=== PATIENT | male | born 1960 | race Caucasian/White ===

== ENCOUNTER → 2017-05-24 | Outpatient (CLI) | payer BC ==
--- NOTE | 2017-05-27 08:11 | RAD ---
4 views left knee. Indication: LEFT KNEE PAIN. M25.562 Comparison: None. IMPRESSION: Mild tricompartmental joint space narrowing without subchondral sclerosis or cystic change. No acute fracture or malalignment. Minimal ossification noted within Hoffa's fat pad anterior superiorly. Tiny knee effusion. Electronically signed by: Manuel Hooks MD 05/27/2017 8:10 AM CDT
--- NOTE | 2017-05-27 08:12 | RAD ---
EXAM DESCRIPTION: Pelvis CLINICAL HISTORY: LEFT HIP PAIN. M25.552 COMPARISON: None FINDINGS: 2 frontal views of the pelvis. Crowding is intact. SI joints and sacral struts are intact. No advanced osteoarthritis of the bilateral hips. No acute fracture. Bone mineralization within normal limits. Advanced facet arthritis of the lumbar spine greater on the left side cannot contribute to referred posterior left hip pain. Surgical changes of the rectal colon. IMPRESSION: Normal radiographs of the hip. Lumbar facet arthritis can refer posterior hip pain. Electronically signed by: Bassem Garay MD 05/27/2017 8:11 AM CDT
== END | disposition home or self-care (01) ==
LOC: RAD 07:35
PROVIDERS: ATTEND Orthopaedic Surgery
DX: M25.562 Pain in left knee (principal); M25.552 Pain in left hip

== ENCOUNTER → 2017-07-10 | Outpatient (CLI) | payer BC | END | disposition home or self-care (01) | LOC: GMAL 10:56 | PROVIDERS: ATTEND Family Medicine | DX: Z00.01 Encounter for general adult medical examination with abnormal findings (principal) ==

== ENCOUNTER → 2017-08-20 | Outpatient (CLI) | payer BC | END | disposition home or self-care (01) | LOC: SL 20:10 | PROVIDERS: ATTEND Family Medicine | DX: F51.09 Other insomnia not due to a substance or known physiological condition (principal); G47.61 Periodic limb movement disorder; G47.10 Hypersomnia, unspecified ==

== ENCOUNTER 2017-08-30 05:51 | Day surgery (SDC) | payer BC, OTHER ==
--- NOTE | 2017-08-19 09:21 | HP ---
CHIEF COMPLAINT: Left knee pain. HISTORY OF PRESENT ILLNESS: Mr. Quinn is a 57-year-old male with a history of pain in the left knee that has been going on for several months. He did have previous trauma to the knee and at that time was only having some pain along the medial aspect. It seems as thought it was more of a ligamentous strain. Unfortunately, he subsequently felt clicking in the knee. He also developed difficulty with extension. He has pain with valgus stress to the knee as well. He has had no new trauma since his last visit with us, but has gotten progressively worse. To that end and given the development of symptoms of a mechanical nature, he and I talked about options, which would include an MRI versus moving forward with knee arthroscopy. Just given his history of worsening symptoms and mechanical symptoms, we are going to move forward with knee arthroscopy. After discussing the risks, benefits and alternatives to that , the patient has given informed consent. PAST SURGICAL HISTORY: None. MEDICATIONS: 1. Fluoxetine. ALLERGIES: NO KNOWN DRUG ALLERGIES. CODE STATUS: Full code. IMMUNIZATIONS: Up to date. SOCIAL HISTORY: The patient does not smoke or use any illicit drugs. He does drink on occasion. FAMILY HISTORY: None pertinent to today's complaint. REVIEW OF SYSTEMS: Negative except as indicated in the History of Present Illness. PHYSICAL EXAMINATION: VITAL SIGNS: Blood pressure 119/78. Pulse 78. Height 6'1". Weight 232. MENTAL STATUS: The patient is awake, alert, and is able to give a good history and participate in the physical. The patient is oriented to person, place and time. SKIN: Normal tone and turgor. MUSCULOSKELETAL: He has no real deformity to the extremity. Sensation is intact. It is warm and well perfused. He has lacks a couple of degrees of extension and flexion is to about 120. He is tender along the medial aspect of the knee. He has no effusion today and he does have palpable clicking in the knee with associated pain medially. Ge does have positive Jonathon's. ASSESSMENT: 1. Meniscus tear. 2. Knee pain. PLAN: The plan at this point is knee arthroscopy. We have discussed the risks, benefits, and alternatives to that and the patient has given informed consent. #[id number] [facility]
[2017-08-30] MEDS ORDERED: LACTATED RINGERS 1,000 ML ONE (06:02)
[2017-08-30] MEDS ORDERED: ceFAZolin SODIUM 1 GM VIAL ONE ×3 (06:02→07:00)
[2017-08-30] MEDS ORDERED: SODIUM CHL 0.9% 100ML MINI-BAG 100 ML IVPB ONE (06:02)
[2017-08-30] MEDS ORDERED: VANCOMYCIN HCL INJ 1,000 MG VIAL IVPB ONE (06:50)
[2017-08-30] MEDS ORDERED: MIDAZOLAM INJ 2 MG/2 ML VIAL ONE (06:51)
[2017-08-30] MEDS ORDERED: fentaNYL CITRATE INJ 50 MCG/ML AMP ONE (06:51)
[2017-08-30] MEDS: BUPIVACAINE 0.25% W/EPI 50 ML VIAL INJ ONE ×2 (07:15→08:05)
[2017-08-30 08:42] VITALS: TEMP 98.2; O2SAT 92
[2017-08-30 08:57] VITALS: BP 95/67
[2017-08-30] MEDS ORDERED: LIDOCAINE 1% 10 ML VIAL INJ ONE (09:00)
[2017-08-30] MEDS ORDERED: PROPOFOL 200 MG/20 ML VIAL IV ONE (09:00)
[2017-08-30] MEDS ORDERED: DEXAMETHASONE INJ 10 MG/ML VIAL ONE (09:00)
[2017-08-30] MEDS ORDERED: KETOROLAC TROMETHAMINE INJ 30 MG/ML VIAL ONE (09:00)
[2017-08-30] MEDS ORDERED: METOCLOPRAMIDE HCL INJ 10 MG/2 ML VIAL ONE (09:00)
[2017-08-30] MEDS ORDERED: raNITIdine HCL INJ 25 MG/ML VIAL ONE (09:00)
[2017-08-30] MEDS ORDERED: ePHEDrine SULF 50 MG/ML ONE (09:00)
[2017-08-30] MEDS ORDERED: ACETAMINOPHEN 500 MG TAB PO ONE (09:15)
--- NOTE | 2017-08-30 09:33 | OP ---
PREOPERATIVE DIAGNOSIS: 1. Knee pain. 2. Meniscus tear. POSTOPERATIVE DIAGNOSIS: 1. Arthritis,. 2. Meniscus tear. 3. Chondromalacia. PROCEDURE: 1. Debridement. 2. Partial meniscectomy. SURGEON: Dakotah Swanson MD TELEVISION CABINET FINISHER: Edwin Ramirez CST, SA-C. ANESTHESIA: General anesthesia. COMPLICATIONS: None. FINDINGS: 1. Large area of the medial femoral condyle with grade 4 chondral damage. 2. Tear involving the body of the medial meniscus. 3. Flap tear of the cartilage on the medial femoral condyle. 4. Normal ACL and normal PCL. 5. Grade 3 changes on the medial tibial plateau. 6. Normal lateral gutter. 7. Normal suprapatellar pouch. 8. Grade 3 to 4 changes of the trochlear groove. 9. Normal medial gutter. INDICATIONS FOR PROCEDURE: Juarez has a history of pain with mechanical symptoms. Juarez has been unable to get relief with more conservative measures. As such, Juarez and I talked about options regarding his condition which would include knee arthroscopy and/or MRI. Because of Juarez's ongoing pain and his mechanical symptoms, he elected to undergo arthroscopy. After discussing the risks, benefits and alternatives to that, the patient has gave informed consent for that. PROCEDURE: The patient was brought to the Operating Room and placed in supine position. General anesthesia was induced and the patient's leg was sterilely prepped and draped. Following prepping and draping, standard anteromedial and anterolateral portals were established. Diagnostic arthroscopy was carried out with the above findings. Attention was then focused on the medial femoral condyle. Using a 3.5 mm full radius shaver, the medial femoral condyle was debrided. It was thoroughly probed to insure no loose cartilaginous flaps remained. A 3.5 mm full radius shaver was used to debride the medial meniscus. Following debridement of the meniscus, it was probed to insure that it has a stable rim. Following probing and confirmation of the stable rim, the knee was very thoroughly irrigated and drained. Following draining of the knee, the wounds were closed with Nylon suture. Following closure of the wound, sterile dressings were placed. The patient was awoken from anesthesia and taken to Recovery. POSTOPERATIVE INSTRUCTIONS: The patient will be partial weightbearing and will followup with us in approximately 3 days. #[id number] [facility]
== END 2017-08-30 09:50 | disposition home or self-care (01) ==
LOC: AMB 05:51
PROVIDERS: ATTEND Orthopaedic Surgery
DX: M23.204 Derangement of unspecified medial meniscus due to old tear or injury, left knee (principal); M94.262 Chondromalacia, left knee; M13.862 Other specified arthritis, left knee; Z88.8 Allergy status to other drugs, medicaments and biological substances; Z79.899 Other long term (current) drug therapy
CPT/HCPCS: 01400; 29881; 36415; 80048; 85025; 87070; 93005; J0690; J1100; J1885; J2250; J2765; J2780; J3010; J3370; J3490; J7050; J7120

== ENCOUNTER → 2018-07-14 | Outpatient (CLI) | payer BC, OTHER | LOC: GMAL 12:34 | PROVIDERS: ATTEND Family Medicine | DX: D51.3 Other dietary vitamin B12 deficiency anemia (principal); Z12.5 Encounter for screening for malignant neoplasm of prostate; E29.1 Testicular hypofunction; R53.83 Other fatigue; E55.9 Vitamin D deficiency, unspecified ==

== ENCOUNTER → 2019-09-07 | Outpatient (CLI) | payer OTHER | LOC: GMAL 10:38 | PROVIDERS: ATTEND Family Medicine | DX: D51.3 Other dietary vitamin B12 deficiency anemia (principal); R53.83 Other fatigue; E78.2 Mixed hyperlipidemia; E29.8 Other testicular dysfunction; E55.9 Vitamin D deficiency, unspecified; Z12.5 Encounter for screening for malignant neoplasm of prostate; Z79.899 Other long term (current) drug therapy | CPT/HCPCS: 82306; 82607; 84402; 84403; G0103 ==